=== PATIENT | male | born 2000 | race Two or more races ===

== ENCOUNTER 2024-06-22 13:15 | Emergency (ER) | payer OTHER ==
[~2024-06-22] VITALS: Ht 180.3 cm; Wt 81.6 kg
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
[2024-06-22] MEDS: HYDROcodone-ACET 10/325MG TAB PO ONE (15:17)
[2024-06-22 15:18] VITALS: BP 117/73; PULSE 79; RESP 18; TEMP 98.6; O2SAT 98
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
[2024-06-22] MEDS ORDERED: IBUP-1455 PO (15:42)
[2024-06-22] MEDS ORDERED: METH-1181 PO (15:42)
[2024-06-22] MEDS ORDERED: LIDO5DIS21 TOP (15:42)
== END 2024-06-22 15:57 | disposition home or self-care (01) ==
LOC: ER 13:15
DX: M54.50 Low back pain, unspecified (principal); F15.90 Other stimulant use, unspecified, uncomplicated; Z79.1 Long term (current) use of non-steroidal anti-inflammatories (NSAID); Z79.899 Other long term (current) drug therapy; V89.2XXA Person injured in unspecified motor-vehicle accident, traffic, initial encounter; Y93.89 Activity, other specified; Y92.89 Other specified places as the place of occurrence of the external cause; Y99.0 Civilian activity done for income or pay
CPT/HCPCS: 72131